=== PATIENT | female | born 1960 | race Caucasian/White ===

== ENCOUNTER 2016-10-05 20:48 | Emergency (ER) | payer BC, OTHER ==
[2016-10-05 21:08] VITALS: BMI 32.1
[2016-10-05] MEDS ORDERED: Sodium Chloride 0.9% 1,000 ML IV STA (21:08)
--- NOTE | 2016-10-05 21:10 | ED PDOC ---
Arrival/HPI - General Time Seen by Provider: 10/05/16 21:01 Historian: Patient - History of Present Illness Narrative History of Present Illness (Text): 10/05/16 21:06 Sonia Abdul is a year old female, whose past medical history includes hypertension, diabetes, and depression, presents to the emergency department via ambulance complaining of 2 day duration of nausea, vomiting and diarrhea. Denies any abdominal pain. She also notes that she has unresolved hematuria since mid-August and is under evaluation by her PMD. Denies any dysuria, flank pain. Denies fever, chills, headache, dizziness, chest pain, shortness of breath , leg pain, back pain, or any other complaints at this time. PMD: Dr. Roblero Time/Duration: Other (2 day) Symptom Onset: Gradual Symptom Course: Unchanged Severity Level: Mild Activities at Onset: Light Past Medical History - Provider Review Nursing Documentation Reviewed: Yes Family/Social History - Physician Review Nursing Documentation Reviewed: Yes Family/Social History: No Known Family HX Allergies/Home Meds Allergies/Adverse Reactions: Allergies No Known Allergies Allergy (Verified 10/05/16 21:10) Home Medications: Home Meds Medication Instructions Recorded Confirmed ALPRAZolam [Xanax] 1 mg PO PRN PRN 10/05/16 10/05/16 GlipiZIDE [Glucotrol] 5 mg PO DAILY 10/05/16 10/05/16 MetFORMIN [glucOPHAGE] 1,000 mg PO BID 10/05/16 10/05/16 Review of Systems - Physician Review All systems were reviewed & negative as marked: Yes - Review of Systems Constitutional: Normal. absent: Fatigue, Fevers Gastrointestinal: Diarrhea, Nausea, Vomiting. absent: Abdominal Pain Genitourinary Female: Hematuria. absent: Dysuria Neurological: Normal. absent: Headache, Dizziness Psychiatric: Normal Physical Exam Vital Signs Reviewed: Yes Vital Signs Temp Pulse Resp BP Pulse Ox 10/05/16 20:56 97.1 F L 94 H 20 154/91 H 93 L Temperature: Afebrile Blood Pressure: Normal Pulse: Regular Respiratory Rate: Normal Appearance: Positive for: Well-Appearing, Non-Toxic, Comfortable Pain Distress: None Mental Status: Positive for: Alert and Oriented X 3 - Systems Exam Head: Present: Atraumatic, Normocephalic Pupils: Present: PERRL Conjunctiva: Present: Normal Mouth: Present: Moist Mucous Membranes Respiratory/Chest: Present: Clear to Auscultation, Good Air Exchange. No: Respiratory Distress, Accessory Muscle Use Cardiovascular: Present: Regular Rate and Rhythm, Normal S1, S2. No: Murmurs Abdomen: Present: Normal Bowel Sounds. No: Tenderness, Distention, Peritoneal Signs, Rebound, Guarding Upper Extremity: Present: Normal Inspection. No: Cyanosis, Edema Lower Extremity: Present: Normal Inspection. No: Edema Neurological: Present: GCS=15, CN II-XII Intact, Speech Normal, Motor Func Grossly Intact, Normal Sensory Function Skin: Present: Warm, Dry, Normal Color. No: Rashes Psychiatric: Present: Alert, Oriented x 3, Normal Insight, Normal Concentration Medical Decision Making ED Course and Treatment: 10/05/16 21:13 Impression: A year old female who presents to the emergency department complaining of nausea, vomiting and diarrhea for 2 days. Differential Diagnosis included but are not limited to: gastritis vs. gastroenteritis Plan: -- Labs -- Pepcid -- IV fluids -- HCG -- Urinalysis - Reassess and disposition Progress Notes: - Lab Interpretations Lab Results: 10/05/16 21:28 10/05/16 21:28 Lab Results 10/05/16 21:28: WBC 7.9, RBC 4.45, Hgb 13.3, Hct 38.4, MCV 86.3, MCH 29.9, MCHC 34.6, RDW 14.3, Plt Count 327, MPV 10.2 10/05/16 21:28: Sodium 142, Potassium 3.8, Chloride 102, Carbon Dioxide 25, Anion Gap 19, BUN 11, Creatinine 0.8, Est GFR ( Amer) > 60, Est GFR (Non- Af Amer) > 60, Random Glucose 126 H, Calcium 9.5, Total Bilirubin 0.4, AST 33, ALT 39, Alkaline Phosphatase 59, Total Protein 7.4, Albumin 4.3, Globulin 3.1, Albumin/Globulin Ratio 1.4, Lipase 250 10/05/16 21:28: Urine Color Yellow, Urine Appearance Clear, Urine pH 6.5, Ur Specific [place] <= 1.005, Urine Protein Negative, Urine Glucose (UA) Negative, Urine Ketones Negative, Urine Blood Small H, Urine Nitrate Negative, Urine Bilirubin Negative, Urine Urobilinogen 0.2, Ur Leukocyte Esterase Negative, Urine RBC 0 - 2, Urine WBC Negative, Urine Other Uyeast, Urine HCG, Qual Negative - Medication Orders Current Medication Orders: Discontinued Medications Famotidine (Pepcid) 20 mg IVP STAT STA Stop: 10/05/16 21:09 Last Admin: 10/05/16 22:05 Dose: 20 mg Sodium Chloride (Sodium Chloride 0.9%) 1,000 mls @ 999 mls/hr IV .Q1H1M STA Stop: 10/05/16 22:08 Last Admin: 10/05/16 22:05 Dose: 999 mls/hr Ondansetron HCl (Zofran Inj) 4 mg IVP ONCE ONE Stop: 10/05/16 21:09 Last Admin: 10/05/16 22:01 Dose: 4 mg - Scribe Statement The provider has reviewed the documentation as recorded by the Sonny Rojas Provider Attestation: All medical record entries made by the Sonny were at my direction and personally dictated by me. I have reviewed the chart and agree that the record accurately reflects my personal performance of the history, physical exam, medical decision making, and the department course for this patient. I have also personally directed, reviewed, and agree with the discharge instructions and disposition. Disposition/Present on Arrival - Present on Arrival Any Indicators Present on Arrival: No - Disposition Have Diagnosis and Disposition been Completed?: Yes Diagnosis: Gastroenteritis Disposition: HOME/ ROUTINE Disposition Time: 04:12 Patient Plan: Discharge Condition: GOOD Discharge Instructions (ExitCare): Gastroenteritis (ED) Additional Instructions: Drink small amounts of liquids frequently/advance diet slowly/start with bland diet/take meds as prescribed/follow up with your doctor this week Prescriptions: Ondansetron [Zofran Odt] 4 mg PO Q6 PRN #12 odt PRN Reason: Nausea/Vomiting
[2016-10-05 21:18] VITALS: TEMP 97.1
[2016-10-05 21:40] LABS: HEMOGLOBIN 13.3 g/dL (12.0-16.0); MEAN CELL VOLUME 86.3 fl (80.0-105.0); MEAN CORPUSCULAR HEMOGLOBIN 29.9 pg (25.0-35.0); MEAN CORPUSCULAR HGB CONC 34.6 g/dl (31.0-37.0); MEAN PLATELET VOLUME 10.2 fl (7.0-11.0); PH,URINE 6.5 (4.7-8.0); RBC 4.45 10^6/uL (3.5-6.1); RED CELL DISTRIBUTION WIDTH 14.3 % (11.5-14.5); URINE BILIRUBIN NEGATIVE (NEGATIVE); URINE BLOOD SMALL (NEGATIVE); URINE GLUCOSE (UA) NEGATIVE (NEGATIVE); URINE LEUKOCYTE ESTERASE NEGATIVE Leu/uL (NEGATIVE); URINE NITRATE NEGATIVE (NEGATIVE); URINE PROTEIN NEGATIVE mg/dL (<30 mg/dL); URINE UROBILINOGEN 0.2 E.U./dL (<1 E.U./dL); WHITE BLOOD COUNT 7.9 10^3/ul (4.5-11.0)
[2016-10-05 21:41] LABS: URINE APPEARANCE CLEAR (CLEAR); URINE COLOR YELLOW (YELLOW)
[2016-10-05 21:44] LABS: HCG,QUALITATIVE URINE NEGATIVE (NEGATIVE); URINE RBC 0 - 2 /hpf (0-2); URINE WBC NEGATIVE /hpf (0-6)
[2016-10-05 21:48] LABS: ALB/GLOB RATIO 1.4 (1.1-1.8); ALBUMIN 4.3 g/dL (3.0-4.8); ALT/SGPT 39 U/L (7-56); AST/SGOT 33 U/L (15-39); BLOOD UREA NITROGEN 11 mg/dL (7-21); CALCIUM 9.5 mg/dL (8.4-10.5); GFR AFRICAN-AMERICAN > 60; GFR NON-AFRICAN AMERICAN > 60; LIPASE 250 U/L (23-300)
[2016-10-06 04:37] VITALS: BP 140/77; PULSE 72; RESP 18; O2SAT 97
== END 2016-10-06 04:37 | disposition home or self-care (01) ==
LOC: ED 20:48
DX: K52.9 Noninfective gastroenteritis and colitis, unspecified (principal); I10 Essential (primary) hypertension; E11.9 Type 2 diabetes mellitus without complications
CPT/HCPCS: 80053; 81001; 83690; 84703; 85027; 96361; 96374; 96375; 99284; J2405; J7040